=== PATIENT | male | born 1945 | race Caucasian/White ===

== ENCOUNTER 2021-11-09 18:15 | Emergency (ER) | payer MEDICARE, OTHER ==
[~2021-11-09] VITALS: Ht 185.4 cm; Wt 80.7 kg
--- NOTE | 2021-11-09 18:19 | NUR ---
BIBA BLS TO ER BED 4 +
[2021-11-09 18:26] VITALS: BP 143/70
[2021-11-09 19:22] VITALS: BP 143/70
--- NOTE | 2021-11-09 19:22 | NUR ---
Patient discharged with v/s stable. Written and verbal after care instructions given and explained. Patient verbalized understanding. Ambulatory with steady gait. All questions addressed prior to discharge. Advised to follow up with PMD.
== END 2021-11-09 19:22 | disposition home or self-care (01) ==
LOC: MED 18:15
DX: R53.1 Weakness (principal); Z86.19 Personal history of other infectious and parasitic diseases; Z90.49 Acquired absence of other specified parts of digestive tract; W19.XXXA Unspecified fall, initial encounter; Y93.89 Activity, other specified; Y92.89 Other specified places as the place of occurrence of the external cause; Y99.8 Other external cause status
CPT/HCPCS: 99283